=== PATIENT | male | born 2005 | race Two or more races ===

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

== ENCOUNTER 2025-06-19 10:29 | Emergency (ER) | payer MEDICAID ==
[~2025-06-19] VITALS: Ht 167.6 cm; Wt 77.3 kg
--- NOTE | 2025-06-19 10:41 | ECG ---
[facility] Test Date: 2025-06-19 Test Time: 10:38:01 Pat Name: HONEY BARNHART Department: [facility] ED Patient ID: [id number] Room: Gender: M Floater Operator: gp : 2005 Requested By: MOOSE HERNANDEZ Order Number: [id number] Reading MD: Measurements Intervals Maxie Rate: 79 P: 70 SD: 146 QRS: 73 QRSD: 85 T: 10 QT: 325 QTc: 373 Interpretive Statements Sinus rhythm Baseline wander in lead(s) II,III,aVR,aVL,aVF,V2,V3 Please click the below link to view image of tracing.
--- NOTE | 2025-06-19 10:56 | ED.PDOC ---
HPI Comments 20 y.o male presents to the ED for a chief complaint of left sided chest pain that started yesterday. Patient reports pain is sharp in nature, presented spontaneously at rest and improved as the day went on. However, he mentions this morning, chest pain presented again and now had bilateral rib pain. He denies any recent illness, contact exposure, cough, SOB, fever, chills. No prior cardiac history. Chief Complaint: Chest Pain Time Seen by MD: 10:40 Reviewed Notes: Nurses Notes, Medications, Allergies Allergies: Coded Allergies: NO KNOWN ALLERGIES (Unverified , 09/30/24) Home Meds Active Scripts Polyethylene Glycol 3350 (Miralax) 17 Gm Pow, 17 GM PO DAILY for 2 Days, #2 POW Prov:CAITY LUKE MD 09/30/24 Metoclopramide Hcl (Reglan) 5 Mg Tab, 5 MG PO Q8HP PRN for 2 Days, #6 TAB Prov:CAITY LUKE MD 09/30/24 Information Source: Patient Mode of Arrival: Ambulatory Severity: Moderate Timing: Days (1) Duration: Since onset Location: Chest (L) Radiation: No Radiation Quality: Sharp Onset: At Rest Cardiac Risk Factors: None PE Risk Factors: None History of: None Modifying Factors: Nothing Associated Signs and Symptoms: None Past Medical History PAST MEDICAL HISTORY: Denies Surgical History: Denies all surgeries Family History Family History: Unknown Social History Smoker: Non-Smoker, Other Alcohol: Occasionally Drugs: Denies Drug Use Lives In: Home Constitutional: denies: chills, diaphoresis, fatigue, fever, malaise, sweats, weakness, others EENTM: denies: blurred vision, double vision, ear bleeding, ear discharge, ear drainage, ear pain, ear ringing, eye pain, eye redness, hearing loss, mouth pain, mouth swelling, nasal discharge, nose bleeding, nose congestion, nose pain, photophobia, tearing, throat pain, throat swelling, voice changes, others Respiratory: denies: cough, hemoptysis, orthopnea, SOB at rest, shortness of breath, SOB with excertion, stridor, wheezing, others Cardiovascular: reports: chest pain; denies: dizzy spells, diaphoresis, Dyspnea on exertion, edema, irregular heart beat, left arm pain, lightheadedness, palpitations, PND, syncope, others Gastrointestinal: denies: abdomen distended, abdominal pain, blood streaked bowels, constipated, diarrhea, dysphagia, difficulty swallowing, hematemesis, melena, nausea, poor appetite, poor fluid intake, rectal bleeding, rectal pain, vomiting, others Genitourinary: denies: burning, dysuria, flank pain, frequency, hematuria, incontinence, penile discharge, penile sore, pain, testicle pain, testicle swelling, urgency, others Neurological: denies: dizziness, fainting, headache, left sided numbness, left sided weakness, numbness, paresthesia, pre-existing deficit, right sided numbness, right sided weakness, seizure, speech problems, tingling, tremors, weakness, others Musculoskeletal: denies: back pain, gout, joint pain, joint swelling, muscle pain, muscle stiffness, neck pain, others Integumetry: denies: bruises, change in color, change in hair/nails, dryness, laceration, lesions, lumps, rash, wounds, others Allergic/Immunocompromised: denies: Difficulty Healing, Frequent Infections, Hives, Itching, others Hematologic/Lymphatic: denies: anemia, blood clots, easy bleeding, easy bruising, swollen glands, others Endocrine: denies: excessive hunger, excessive sweating, excessive thirst, excessive urination, flushing, intolerance to cold, intolerance to heat, unexplained weight gain, unexplained weight loss, others Psychiatric: denies: anxiety, bipolar disorder, depression, hopeless, panic disorder, schizophrenia, sleepless, suicidal, others All Other Systems: Reviewed and Negative Physical Exam General Appearance: Moderate Distress HEENT: Normal ENT Inspection, Pharynx Normal, TMs Normal Neck: Full Range of Motion, Non-Tender, Normal, Normal Inspection Respiratory: Chest Non-Tender, Lungs Clear, No Accessory Muscle Use, No Respiratory Distress, Normal Breath Sounds Cardiovascular: No Edema, No JVD, No Murmur, No Gallop, Normal Peripheral Pulses, Regular Rate/Rhythm Breast Exam: Deferred Gastrointestinal: No Organomegaly, Non Tender, No Pulsatile Mass, Normal Bowel Sounds, Soft Genitalia: Deferred Pelvic: Deferred Rectal: Deferred Extremities: No calf tenderness, Normal capillary refill, Normal inspection, Normal range of motion, Non-tender, No pedal edema Musculoskeletal : Apperance: Normal 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 Was a procedure done?: No CP Differential Dx Differential Diagnosis: A-fib, A-Flutter, Angina, Anxiety / Panic Attack, Atrial Dysrhythmia, Electrolyte Disorder, N/A Differential Diagnosis: Angina, Chest Wall Pain, Cholelithiasis, Costochondritis, Pericarditis X-Ray, Labs, Meds, VS Vital Signs Date Time Temp Pulse Resp B/P (MAP) Pulse Ox O2 Delivery O2 Flow Rate FiO2 06/19/25 13:16 83 06/19/25 11:28 80 06/19/25 10:56 79 06/19/25 10:38 79 06/19/25 10:31 98.8 78 18 118/76 97 98.8 Lab Test 06/19/25 11:31 06/19/25 10:41 Range/Units Troponin I High Sensitivity < 3 L < 3 L </=54 ng/L D-Dimer, Quantitative 0.19 0.0-0.49 mg/L [place] [id number] Ph: [phone] DIAGNOSTIC IMAGING Diagnostic Imaging Report : [id number] Signed PATIENT: HONEY BARNHART ACCT: [id number] UNIT: [id number] : 2005 LOC: ER ROOM / BED: / AGE / SEX: 20 / M ADM STATUS: REG ER SERVICE [id number] ORDERING PHYSICIAN: MOOSE HERNANDEZ MD PROCEDURE(s): CXRP - CHEST PORTABLE REASON: sob ORDER NUMBER(s): [id number], ACCESSION NUMBER(s): [id number] CLINICAL INFORMATION: Shortness of breath. TECHNIQUE: Single AP portable chest radiograph was obtained. COMPARISON: None FINDINGS: Lungs: Clear. Cardiac: Heart size is within normal limits. Pulmonary vasculature: Unremarkable. Mediastinum/dakota: Unremarkable. Bones: No acute osseous abnormality identified. Other: No other significant findings. IMPRESSION: No evidence of acute disease in the chest. Patient is alert. Complaining of chest discomfort. Vitals stable. Answering questions. No sign of any acute process. Chest x-ray reviewed does not show any acute process. EKG reviewed does not show any acute process. D-dimer within normal limits. Cardiac marker within normal limits. Heart rate within normal limits. Saturation pristine on room air. No leg swelling. No acute process. Explained to the patient. Was told to follow up with his primary care physician. Was told to come back if there is any problem. Time of 1ST Reevaluation: 10:56 Reevaluation 1ST: Unchanged Patient Education/Counseling: Diagnosis, Treatment, Prognosis Family Education/Counseling: No Family Present SEPSIS Sepsis Screen Date sepsis recognized/suspect: Jun 19, 2025 Time Sepsis recognized/suspect: 1033 Recent Procedure: No On Antibiotic Therapy: No Respiratory Rate >20: No Heart Rate >90: No Temp<36 C (96.8 F) or >38.3 C: No SBP <90 or MAP <65 mmHG: No New Acute Mental Status Change: No Is the patient on CPAP, BIPAP,: No Physician Orders Electrocardigram (06/19/25 13:33) Chest Portable (06/19/25 10:44) Vital Signs Date Time Temp Pulse Resp B/P (MAP) Pulse Ox O2 Delivery O2 Flow Rate FiO2 06/19/25 13:16 83 06/19/25 11:28 80 06/19/25 10:56 79 06/19/25 10:38 79 06/19/25 10:31 98.8 78 18 118/76 97 98.8 Departure 1 Departure Time of Disposition: 13:46 Impression: Primary Impression: Musculoskeletal chest pain Additional Impression: Anxiety Disposition: 01 HOME / SELF CARE / HOMELESS Condition: Good Discharged With: Self Critical Care Note Critical Care Time?: No Stability Stability form required: No Heart Score Heart Score: Heart Score Response (Comments) Value History Slightly Suspicious 0 EKG Normal 0 Age <45 0 Risk Factors No known risk factors 0 Troponin Normal limit 0 Total 0 I personally scribed for MOOSE HERNANDEZ MD ([email or web address]) on 06/19/25 at 10:56. Electronically submitted by Sharmila Hernandez ([facility]). I personally scribed for MOOSE HERNANDEZ MD ([email or web address]) on 06/19/25 at 11:14. Electronically submitted by Joan Hamlin ([facility]). MOOSE HERNANDEZ MD Jun 19, 2025 10:56
--- NOTE | 2025-06-19 11:12 | DVH ---
CLINICAL INFORMATION: Shortness of breath. TECHNIQUE: Single AP portable chest radiograph was obtained. COMPARISON: None FINDINGS: Lungs: Clear. Cardiac: Heart size is within normal limits. Pulmonary vasculature: Unremarkable. Mediastinum/dakota: Unremarkable. Bones: No acute osseous abnormality identified. Other: No other significant findings. IMPRESSION: No evidence of acute disease in the chest.
--- NOTE | 2025-06-19 11:27 | ECG ---
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
[2025-06-19 14:45] VITALS: BP 113/84; PULSE 86; RESP 19; TEMP 97.8; O2SAT 96
--- NOTE | 2025-06-19 19:09 | ECG ---
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
== END 2025-06-19 10:31 | disposition home or self-care (01) ==
LOC: ER 10:29
DX: R07.89 Other chest pain (principal); F41.9 Anxiety disorder, unspecified; Z79.899 Other long term (current) drug therapy
CPT/HCPCS: 36415; 71045; 84484; 85379; 93005